=== PATIENT | female | born 1965 | race Two or more races ===

== ENCOUNTER 2024-10-15 20:50 | Emergency (ER) | payer SELFPAY, OTHER ==
[~2024-10-15] VITALS: Ht 162.6 cm; Wt 75.0 kg
[2024-10-15 21:34] VITALS: RESP 12; TEMP 97.9; O2SAT 100
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
[2024-10-15] MEDS: ONDANSETRON ODT 4 MG TAB PO ONE (21:38)
[2024-10-15] MEDS: HYDROcodone-ACET 5/325MG TAB PO ONE (21:38)
[2024-10-15] MEDS: amLODIPine BESYLATE 5 MG TAB PO ONE (22:00)
--- NOTE | 2024-10-15 22:10 | DVH ---
INDICATION: thoracic back pain TECHNIQUE: AP and lateral radiographs thoracic spine. COMPARISON: None FINDINGS / IMPRESSION: There is normal alignment of the thoracic spine. The thoracic vertebral bodies are normal in appearan ce with no evidence of compression fracture. Mild thoracic spondylosis.
[2024-10-15] MEDS ORDERED: ACET500T58 PO (22:22)
[2024-10-15] MEDS ORDERED: CYCL-837 PO (22:22)
[2024-10-15 22:23] VITALS: BP 163/100; PULSE 81; O2SAT 98
== END 2024-10-15 22:28 | disposition home or self-care (01) ==
LOC: EDBD 20:50 → ER 20:50
DX: S29.012A Strain of muscle and tendon of back wall of thorax, initial encounter (principal); E78.5 Hyperlipidemia, unspecified; Z90.49 Acquired absence of other specified parts of digestive tract; V89.2XXA Person injured in unspecified motor-vehicle accident, traffic, initial encounter; Y93.89 Activity, other specified; Y92.410 Unspecified street and highway as the place of occurrence of the external cause; Y99.8 Other external cause status
CPT/HCPCS: 72070; 99284; Q0162